=== PATIENT | female | born 1955 | race Asian ===

== ENCOUNTER 2017-06-07 07:45 | Observation (INO) | payer OTHER ==
--- NOTE | 2017-06-20 12:06 | PDHPUP ---
History & Physical Update H&P update statement: This history and physical update is based on an assessment of the patient which was completed after admission or registration (within 24 hours), but prior to the surgery/procedure.
[2017-06-21] MEDS ORDERED: ceFAZolin 2 GM/SWFI 2 GM/20 ML SYR IVP ONE (08:38)
[2017-06-21] MEDS ORDERED: LIDOCAINE 1% 2 ML INJ ONE (08:45)
--- NOTE | 2017-06-21 08:48 | PDANEPAE ---
ANE History of Present Illness 62 year old female w/ left parotid gland mass presents for left parotidectomy. ANE Past Medical History - Cardiovascular History Hx Hypertension: No Hx Arrhythmias: No Hx Chest Pain: No Hx Coronary Artery / Peripheral Vascular Disease: No Hx CHF / Valvular Disease: No Hx Palpitations: No - Pulmonary History Hx COPD: No Hx Asthma/Reactive Airway Disease: No Hx Recent Upper Respiratory Infection: No Hx Oxygen in Use at Home: No Hx Sleep Apnea: No Sleep Apnea Screening Result - Last Documented: Negative - Neurologic History Hx Cerebrovascular Accident: No Hx Seizures: No Hx Dementia: No - Endocrine History Hx Diabetes: No Hypothyroid: No Hyperthyroid: No Obesity: no - Renal History Hx Renal Disorders: No - Liver History Hx Hepatic Disorders: No - Neurological & Psychiatric Hx Hx Neurological and Psychiatric Disorders: No - Cancer History Hx Cancer: No - Congenital Disorder History Hx Congenital Disorders: No - GI History GERD: no Hx Gastrointestinal Disorders: No - Other Health History Other Health History: NEG - Chronic Pain History Chronic Pain: No - Surgical History Prior Surgeries: DISCECTOMY. KNEE ALEX X3. PICC LINES X2 ANE Review of Systems Review of Systems: - Exercise capacity Exercise capacity: >=4 METS METS (RN): 5 METS ANE Patient History - Allergies Allergies/Adverse Reactions: erythromycin base Allergy (Verified 06/04/17 10:41) Diarrhea - Home Medications Home medications: home medication list seen and reviewed Home Medications: Herbals/Supplements -Info Only 06/04/17 [Last Taken 06/13/17] Sleep Aid 06/04/17 [Last Taken 06/20/17] - NPO status NPO Status: no food or drink >8 hours - Anes Hx Anes Hx: no prior problems - Smoking Hx Smoking Status: Never smoked Marijuana use: No - Alcohol Use Alcohol Use: Rarely - Family Anes Hx Family Anes Hx: neg - N/A Family Hx Anesthesia Complications: NEG ANE Labs/Vital Signs - Vital Signs Vital Signs: reviewed preoperatively; see RN documention for details Height: 171.45 cm Weight: 65.317 kg ANE Physical Exam - Airway Neck exam: FROM Mallampati Score: Class 2 Mouth exam: normal dental/mouth exam Mouth image: 1 - Missing 2 - Permanent bridge - Pulmonary Pulmonary: no respiratory distress - Cardiovascular Cardiovascular: regular rate and rhythym - ASA Status ASA Status: II ANE Anesthesia Plan Anesthesia Plan: general endotracheal anesthesia Total IV Anesthesia: No
[2017-06-21] MEDS ORDERED: LR 1,000 ML IV ONE (08:55)
[2017-06-21] MEDS ORDERED: LIDOCAINE 1% 2 ML INJ ID PRN (08:55)
[2017-06-21] MEDS ORDERED: MIDAZOLAM 2 MG/2 ML VIAL IVP ONE (09:38)
[2017-06-21] MEDS ORDERED: LIDOCAINE 1% 300 MG/30 ML SDV ONE (09:47)
[2017-06-21] MEDS ORDERED: BACITRACIN ZINC 14.2 GM OINTTUBE TP ONE (09:47)
[2017-06-21] MEDS ORDERED: REMIFENTANIL HCL 1 MG VIAL ONE ×2 (09:57→11:34)
[2017-06-21] MEDS ORDERED: PROPOFOL/EMULSION 500 MG/50 ML BOTTLE IV ONE ×2 (09:57→11:34)
[2017-06-21] MEDS ORDERED: fentaNYL 100 MCG/2 ML INJ ONE (10:00)
[2017-06-21] MEDS ORDERED: PROPOFOL 200 MG/20 ML VIAL ONE (10:00)
[2017-06-21] MEDS ORDERED: LIDOCAINE 2% 5 ML SDV ONE (11:05)
[2017-06-21] MEDS ORDERED: DEXAMETHASONE 4 MG/ML VIAL ONE (11:05)
[2017-06-21] MEDS ORDERED: HYDROCODONE/APAP 5/325 TAB PO PRN ×2 (12:14→17:24)
[2017-06-21] MEDS ORDERED: PHENYLEPHRINE HCL 100 MCG/ML SYR IVP PRN (12:14)
[2017-06-21] MEDS ORDERED: LR 500 ML IV PRN (12:14)
[2017-06-21] MEDS ORDERED: fentaNYL 100 MCG/2 ML INJ IVP PRN (12:14)
[2017-06-21] MEDS ORDERED: NALOXONE HCL 0.4 MG/ML INJ IVP PRN (12:14)
[2017-06-21] MEDS ORDERED: ONDANSETRON 4 MG/2 ML VIAL IVP PRN (12:14)
[2017-06-21] MEDS ORDERED: HYDROmorphONE/DILAUDID 1 MG/ML INJ IVP PRN (12:14)
[2017-06-21] MEDS ORDERED: ONDANSETRON 4 MG/2 ML VIAL ONE (12:17)
[2017-06-21] MEDS ORDERED: HYDROCOD/APAP 7.5/325 IN 15ML UDCUP PO PRN (13:00)
[2017-06-21] MEDS ORDERED: OXYCODONE/APAP 5/325 TAB PO PRN (13:00)
--- NOTE | 2017-06-21 13:13 | POSTOPPROG ---
Post Op Note Date of Operation: 06/21/17 Surgeon: Solomon Foster Television Repairman: Perfecto Flynn M.D. Anesthesia: GET(General Endotracheal) Pre-op Diagnosis: left parotid mass Post-op Diagnosis: left deep lobe parotid mass Procedure: left total parotidectomy Findings: deep lobe parotid tumor Inf/Abcess present in the surg proc area at time of surgery?: No Depth: Deep Incisional (Fascial) EBL: 50-100 Total fluids administered: 900 Complications: none Drains: Adolph Haley Specimen(s): left parotid tumor
--- NOTE | 2017-06-21 13:52 | POSTANESTH ---
Post Anesthetic Evaluation Cardiovascular Status: Normal, Stable, Similar to Pre-Op Cond Respiratory Status: Normal, Stable, Similar to Pre-op Cond. Level of Consciousness/Mental Status: Can Participate in Eval, Mildly Sleepy, Arousable Pain Control: Adequate, Prn Tx Ordered Nausea/Vomiting Control: Adequate, Prn Tx Ordered Complications Possibly Related to Anesthesia: None Noted
[2017-06-21] MEDS: D5W 1/2 NS W/ 20 KCl/L 1,000 ML IV SCH (17:22)
--- NOTE | 2017-06-21 17:28 | SOAPPROG ---
SOAP Progress Note Assessment/Plan: Subjective: 62 year old female s/p left parotidectomy for parotid mass. She is doing well. Notes mild-moderate pain. Objective: She is alert, oriented. Vital signs stable. Breathing well. Facial nerve intact, dressing dry/intact. NATHEN drain with minimal output. Exam otherwise unremarkable. A/P: 62 year old female s/p left parotidectomy for parotid mass. Plans to discharge tomorrow and follow up in clinic in 1 week. Patient was evaluated by Dr. Foster 06/21/17 17:25 Objective: Vital Signs Temp Pulse Resp BP Pulse Ox 36.4 C 86 16 118/81 H 97 06/21/17 16:10 06/21/17 16:10 06/21/17 16:10 06/21/17 16:10 06/21/17 16:10 06/20/17 06/21/17 06/22/17 05:59 05:59 05:59 Intake Total 1118 Balance 1118 ICD10 Worksheet Patient Problems: Problems Problem Status Onset Parotid mass Acute - ICD10 Problem Qualifiers (1) Parotid mass
[2017-06-21] MEDS: ONDANSETRON 4 MG/2 ML VIAL IVP PRN (20:16)
[2017-06-22] MEDS: ONDANSETRON 4 MG/2 ML VIAL IVP PRN ×2 (01:06→10:20)
[2017-06-22] MEDS: D5W 1/2 NS W/ 20 KCl/L 1,000 ML IV SCH (06:15)
--- NOTE | 2017-06-22 08:40 | SOAPPROG ---
SOAP Progress Note Assessment/Plan: pt s/p parotidectomy. Feeling nauseated. Moderate discomfort. o:- dressing removed, drain removed, new dressing placed. Plan: pt s/p parotidectomy, doing well. Discussed post op care. F/u next week for suture removal. 06/22/17 08:39 Objective: Vital Signs Temp Pulse Resp BP Pulse Ox 37.3 C 86 12 119/71 94 06/22/17 07:19 06/22/17 07:19 06/22/17 07:19 06/22/17 07:19 06/22/17 07:19 06/21/17 06/22/17 06/23/17 05:59 05:59 05:59 Intake Total 8160 570 Output Total 500 Balance 1570 570 ICD10 Worksheet Patient Problems: Problems Problem Status Onset Parotid mass Acute
[2017-06-22 11:28] VITALS: BP 126/75; PULSE 82; RESP 16; TEMP 98.3; O2SAT 95
--- NOTE | 2017-06-22 17:40 | ASDISCHSUM ---
Discharge Information Plan Status:Home with No Needs Medically Cleared to Leave: Discharge Date:06/22/2017 01:19 PM CM D/C Disposition:Home, Routine, Self-Care ADT D/C Disposition:Home, Routine, Self-Care Projected Discharge Date:06/22/2017 01:19 PM Transportation at D/C: Discharge Delay Reason: Follow-Up Date:06/22/2017 01:19 PM Discharge Slot: Final Diagnosis: Placement Information Patient Contact Information Contact Name:VEGA Relationship: Address:[address] City:[place] Alternate Phone: [facility]/Zip Code:[place] [address] Email: Financial Information Financial Class:[employer] Primary Plan Desc:[employer] HMO OPEN ACC LOCAL Primary Plan Number:[id number] Secondary Plan Desc: Secondary Plan Number: Assessment Information Intervention Information
== END 2017-06-22 13:19 | disposition home or self-care (01) ==
LOC: F3E 06-21 08:18
PROVIDERS: ADMIT Otolaryngology; ATTEND Otolaryngology
PROC: 0CT90ZZ Resection of Left Parotid Gland, Open Approach (ICD-10-PCS; principal; 2017-06-21 09:45)
DX: D11.0 Benign neoplasm of parotid gland (principal)
CPT/HCPCS: 42410; G0378; J0171; J0690; J1100; J2250; J2370; J2405; J2704; J3010